=== PATIENT | male | born 1965 | race Caucasian/White ===

== ENCOUNTER 2021-11-30 11:01 | Emergency (ER) | payer MEDICAID ==
[~2021-11-30] VITALS: Ht 160 cm; Wt 73.0 kg
[2021-11-30 11:12] VITALS: BP 156/85
[2021-11-30] MEDS ORDERED: ACETAMINOPHEN 325MG TABLET PO ONE (11:45)
== END 2021-11-30 12:56 | disposition home or self-care (01) ==
LOC: EDBD 11:01 → ER 12:53
DX: S80.02XA Contusion of left knee, initial encounter (principal); V49.49XA Driver injured in collision with other motor vehicles in traffic accident, initial encounter; Y93.89 Activity, other specified; Y92.89 Other specified places as the place of occurrence of the external cause; Y99.8 Other external cause status
CPT/HCPCS: 73562; 99283

== ENCOUNTER 2021-12-05 09:55 | Emergency (ER) | payer MEDICAID ==
[~2021-12-05] VITALS: Ht 165.1 cm; Wt 78.0 kg
[2021-12-05 10:01] VITALS: BP 171/90
== END 2021-12-05 10:37 | disposition home or self-care (01) ==
LOC: ER 09:55
DX: S01.81XD Laceration without foreign body of other part of head, subsequent encounter (principal); X58.XXXD Exposure to other specified factors, subsequent encounter
CPT/HCPCS: 99281

== ENCOUNTER 2021-12-09 10:30 | Emergency (ER) | payer MEDICAID, OTHER ==
[~2021-12-09] VITALS: Ht 165.1 cm; Wt 60.0 kg
[2021-12-09 11:04] VITALS: BP 161/82
== END 2021-12-09 11:51 | disposition home or self-care (01) ==
LOC: ER 10:30
DX: S01.01XD Laceration without foreign body of scalp, subsequent encounter (principal); Z48.02 Encounter for removal of sutures; X58.XXXD Exposure to other specified factors, subsequent encounter
CPT/HCPCS: 99281; Z7610

== ENCOUNTER 2023-10-21 22:14 | Emergency (ER) | payer BC, OTHER ==
[~2023-10-21] VITALS: Ht 162.6 cm; Wt 73.0 kg
[2023-10-21 22:57] VITALS: TEMP 98.9
[2023-10-21] MEDS: MORPHINE SULFATE 4 MG/ML INJ (FOR IV/IM USE) IV STA (22:57)
[2023-10-21] MEDS: ONDANSETRON HCL 4MG/2ML INJ IV STA (22:57)
[2023-10-21] MEDS: ACETAMINOPHEN 500MG TABLET PO STA (22:57)
[2023-10-21] MEDS ORDERED: TETANUS, DIPHTHERIA, PERTUSSIS VAC/PF 0.5ML (>10YR OLD) IM ONE (23:00)
[2023-10-21 23:37] LABS: ALANINE AMINOTRANSFERASE 22 IU/L (10-49); ALBUMIN 4.6 g/dL (3.2-4.8); ASPARTATE AMINOTRANSFERASE 28 IU/L (<34); BILIRUBIN TOTAL 0.6 mg/dL (0.1-1.0); CARBON DIOXIDE 24 mEq/L (21-32); CHLORIDE 104 mEq/L (98-107); CREATINE KINASE 188 IU/L (46-171); CREATININE 0.8 mg/dL (0.6-1.3); GLUCOSE 107 mg/dL (70-105); POTASSIUM 3.7 mEq/L (3.5-5.1); PROTEIN TOTAL 8.2 g/dL (6.0-8.3); SODIUM 135 mEq/L (136-145); UREA NITROGEN BLOOD 9 mg/dL (9-23)
[2023-10-21 23:41] LABS: HEMATOCRIT. 45.5 % (42.0-52.0); HEMOGLOBIN. 15.9 g/dL (14.0-18.0); MEAN CORPUSCULAR HEMOGLOBIN 31.9 pg (28.0-32.0); MEAN CORPUSCULAR VOLUME 91.1 fL (80.0-94.0); PLATELET 264 x1000/uL (130-400); RED CELL DISTRIBUTION WIDTH 13.6 % (11.6-14.6); WHITE BLOOD COUNT 10.4 x1000/uL (4.5-11.0)
[2023-10-21 23:47] LABS: DIFFERENTIAL COMMENT 1; INR 0.9; PARTIAL THROMBOPLASTIN TIME 24.8 sec (23.4-31.0); PROTHROMBIN TIME 10.3 sec (9.6-11.0)
[2023-10-22] MEDS: SODIUM CHLORIDE 0.9% 1,000 ML IV ONE (00:49)
[2023-10-22] MEDS: TETANUS, DIPHTHERIA, PERTUSSIS VAC/PF 0.5ML (>10YR OLD) IM ONE (00:54)
[2023-10-22] MEDS: BACITRACIN ZINC OINT UDPKT TOP ONE (01:08)
[2023-10-22] MEDS: LIDOCAINE HCL/PF 1% 10 MG/ML 5ML VIAL INFIL ONE (01:08)
[2023-10-22] MEDS: MORPHINE SULFATE 4 MG/ML INJ (FOR IV/IM USE) IV ONE (02:17)
[2023-10-22] MEDS: ONDANSETRON HCL 4MG/2ML INJ IV ONE (02:20)
[2023-10-22 05:35] VITALS: BP 143/78; PULSE 75; RESP 14
[2023-10-22] MEDS ORDERED: TRAM50TA3 MT (06:03)
[2023-10-22] MEDS ORDERED: ONDA4TAB50 MT (06:03)
[2023-10-22] MEDS ORDERED: IOHEXOL-300 100 ML BOTTLE ONE (06:23)
[2023-10-22 06:25] LABS: BASOPHILS % 0.8 % (0.0-2.0); EOSINOPHILS % 1.4 % (0.0-5.0); HEMATOCRIT. 41.3 % (42.0-52.0); HEMOGLOBIN. 14.3 g/dL (14.0-18.0); LYMPHOCYTES % 24.6 % (20.0-50.0); MEAN CORPUSCULAR HEMOGLOBIN 31.5 pg (28.0-32.0); MEAN CORPUSCULAR HGB CONC 34.5 g/dL (31.0-37.0); MEAN CORPUSCULAR VOLUME 91.1 fL (80.0-94.0); MEAN PLATELET VOLUME 7.5 fl (7.4-10.4); NEUTROPHILS % 61.2 % (40.0-76.0); PLATELET 224 x1000/uL (130-400); RED BLOOD CELL COUNT 4.53 mill/uL (4.7-6.1); RED CELL DISTRIBUTION WIDTH 13.7 % (11.6-14.6); WHITE BLOOD COUNT 5.3 x1000/uL (4.5-11.0)
[2023-10-22] MEDS ORDERED: HYDROCODONE/ACETAMINOPHEN 5/325MG TABLET PO NR (07:00)
[2023-10-22 07:08] LABS: PLATELET ESTIMATE NORMAL
== END 2023-10-22 05:40 | disposition home or self-care (01) ==
LOC: ER 22:14
DX: S61.213A Laceration without foreign body of left middle finger without damage to nail, initial encounter (principal); S70.02XA Contusion of left hip, initial encounter; S09.90XA Unspecified injury of head, initial encounter; M54.50 Low back pain, unspecified; X58.XXXA Exposure to other specified factors, initial encounter; Y93.89 Activity, other specified; Y92.89 Other specified places as the place of occurrence of the external cause; Y99.8 Other external cause status
CPT/HCPCS: 80053; 82550; 83605; 83690; 85025 ×2; 85610; 85730; 86850; 86900; 87040; 86901; 36415; 73502; 73552; 71045; 73130; 70450; 72131; 73700; 74177; 96374; 96375; 99285; 90715; 90471; 96361; 96376; J2405 ×2; J2270 ×2; J7030; Q9967; J3490; Z7610 ×2